=== PATIENT | male | born 1985 | race Caucasian/White ===

== ENCOUNTER 2018-01-25 11:30 | Emergency (ER) | payer SELFPAY ==
[~2018-01-25] VITALS: Ht 165.1 cm; Wt 69.0 kg
[~2018-01-25 11:30] MED LIST: NAPROSYN500 MG PO
[2018-01-25 12:18] LABS: HEMATOCRIT 45.3 % (38.0-50.0); HEMOGLOBIN 15.1 G/DL (12.5-16.6); MCH 29.2 PG (29.0-34.0); MCHC 33.3 G/DL (30.0-36.0); MCV 87.5 FL (86-99); RBC DIS.WIDTH-CV 12.6 % (11.8-14.6); RBC DIS.WIDTH-SD 40.4 % (39-53); RED BLOOD COUNT 5.18 M/uL (4.00-5.50); WHITE BLOOD COUNT 7.7 K/uL (4.1-10.2)
[2018-01-25 12:34] LABS: ALBUMIN 4.3 g/dL (3.2-4.8); CHLORIDE 108 mEq/L (99-109); POTASSIUM 4.1 mEq/L (3.7-5.4); SODIUM 142 mEq/L (136-147)
[2018-01-25 12:36] LABS: GLUCOSE 98 mg/dL (70-99)
[2018-01-25 12:37] LABS: TOTAL PROTEIN 7.2 g/dL (6.4-8.3)
[2018-01-25 12:38] LABS: TOTAL BILIRUBIN 0.5 mg/dL (0.0-1.0)
[2018-01-25 12:39] LABS: TROP-I INTERPRETATION NEGATIVE; TROPONIN-I < 0.01 ng/mL (0.0-0.30)
[2018-01-25 12:40] LABS: ALKALINE PHOSPHATASE 37 IU/L (3-129); CREATININE 0.9 mg/dL (0.6-1.3); GFR ESTIMATE (CALCULATED) > 59 mL/min/ (58.99-99999)
[2018-01-25 12:41] LABS: UREA NITROGEN (BUN) 8 mg/dL (9-23)
[2018-01-25 12:42] LABS: AST (GOT) 15 IU/L (2-34)
[2018-01-25 12:43] LABS: ALT (GPT) 10 IU/L (3-49)
[2018-01-25 13:14] LABS: PLAT.SUFFICIENCY ADEQUATE; PLATELET COUNT 198 K/uL (156-360)
[2018-01-25 14:50] LABS: TROP-I INTERPRETATION NEGATIVE; TROPONIN-I < 0.01 ng/mL (0.0-0.30)
[2018-01-25] MEDS ORDERED: FLEXERIL10 MG PO (14:54)
[2018-01-25 15:05] VITALS: BP 107/68
== END 2018-01-25 15:07 | disposition home or self-care (01) ==
LOC: EME 11:30
PROVIDERS: Nurse Practitioner Family
DX: R07.89 Other chest pain (principal); F17.210 Nicotine dependence, cigarettes, uncomplicated; Z71.6 Tobacco abuse counseling
CPT/HCPCS: 71046; 80053; 84484; 85027; 93005; 99281; 99284